=== PATIENT | male | born 1955 | race Caucasian/White ===

== ENCOUNTER 2016-09-05 05:53 | Day surgery (SDC) | payer BC, MEDICAID ==
[2016-09-05] MEDS ORDERED: Dextrose 5%-Lactated Ringers 1,000 ML IV SCH (06:45)
[2016-09-05] MEDS ORDERED: fentaNYL 100 MCG/2 ML SDV ONE (07:16)
[2016-09-05] MEDS ORDERED: Propofol 200 MG/20 ML SDV ONE (07:16)
[2016-09-05] MEDS ORDERED: Midazolam 1 MG/ML 2 ML SDV ONE (07:16)
[2016-09-05 09:03] VITALS: BP 129/74
--- NOTE | 2016-09-12 14:35 | OR ---
DATE OF PROCEDURE: 09/05/2016 PREOPERATIVE DIAGNOSIS: History of ongoing diarrhea/frequent loose bowel movements. POSTOPERATIVE DIAGNOSIS: Normal colonoscopic exam. OPERATIVE PROCEDURE: Flexible colonoscopy with, 1. Collection of stool for culture and sensitivity. 2. Random colon and rectal biopsies to rule out microscopic colitis ([id number]). ANESTHESIA: IV sedation. INDICATION FOR PROCEDURE: This is a 61-year-old male presenting with some ongoing frequent loose bowel movements and/or diarrhea. Plan is to proceed with colonoscopy with biopsies and/or polypectomy as indicated. Potential risks including bleeding and perforation were discussed, and the patient wishes to proceed. DETAILS OF PROCEDURE: The patient was taken to the operating room and placed in a left lateral decubitus position. IV sedation was administered, after which the initial digital rectal exam was performed and was unremarkable. No significant prostate enlargement was noted. The scope was then passed into the rectum with retroflexion revealing uncomplicated hemorrhoidal columns. The scope was then easily passed through the level of the cecum. The prep was fairly good with there being a small amount liquid stool present. Grossly, there were no abnormalities. Specifically, there is no areas of inflammation or diverticular disease and no polyps or other signs of neoplasia. As the scope was then withdrawn the negative findings were reconfirmed and multiple random biopsies beginning in the cecum and extending down to the rectum were made to rule out microscopic colitis with the biopsy sites were seen. The stool was also collected for a full battery of stool microbiologic workup and the procedure was then concluded. The patient was taken to the recovery room in satisfactory condition. There were no evident complications. The patient will be set up for followup with Dr. Bains in [facility], 7-10 days. Anson Glover MD /[id number]
== END 2016-09-05 09:00 | disposition home or self-care (01) ==
LOC: JP.SDS 05:53
PROVIDERS: ATTEND Surgery
DX: R19.7 Diarrhea, unspecified (principal); Z91.09 Other allergy status, other than to drugs and biological substances
CPT/HCPCS: 45380; 87046; 87177; 87209; 87493; 87899; 88305; J2250; J2704; J3010; J7042

== ENCOUNTER 2017-07-08 15:56 | Emergency (ER) | payer MEDICAID ==
[2017-07-08] MEDS ORDERED: Albuterol/Ipratropium 3.0-0.5 MG/3 ML Neb Soln NEB ONE (17:21)
[2017-07-08 18:00] VITALS: BP 116/61
--- NOTE | 2017-07-08 18:05 | EDM.PDOC ---
ED HPI GENERAL MEDICAL PROBLEM - General Chief Complaint: Respiratory Problem Stated Complaint: FLU, GETTING WORSE Time Seen by Provider: 07/08/17 16:45 Source of Information: Reports: Patient, Family History Limitations: Reports: No Limitations - History of Present Illness INITIAL COMMENTS - FREE TEXT/NARRATIVE: 62-year-old male was seen Monday in the clinic for a bad cough, started on Tamiflu but no testing was done. He is taking the medicine for 3 days but seems to be getting worse, his cough is uncontrollable and he can't sleep. Running some intermittent low-grade fevers. No productive cough. Generalized body aches , feels awful. He is a smoker. No nausea or vomiting. Onset: Gradual (Over the past 4 days) Severity: Moderate Associated Symptoms: Reports: Cough, Fever/Chills, Malaise, Shortness of Breath - Related Data Allergies Allergy/AdvReac Type Severity Reaction Status Date / Time dust mites Allergy Fever Uncoded 07/08/17 16:41 Home Meds: Home Meds Citalopram Hydrobromide [Celexa] 20 mg PO DAILY 12/10/15 [History] Tadalafil [Cialis] 5 mg PO ASDIRECTED 03/08/16 [History] Past Medical History - Past Health History Medical/Surgical History: Denies Medical/Surgical History HEENT History: Reports: Impaired Vision Other HEENT History: wears glasses Respiratory History: Reports: Bronchitis, Recurrent, Sleep Apnea, Other (See Below) Other Respiratory History: c-pap Gastrointestinal History: Reports: Chronic Diarrhea Genitourinary History: Reports: Other (See Below) Other Genitourinary History: E.D. Musculoskeletal History: Reports: Back Pain, Chronic Psychiatric History: Reports: Anxiety, Depression - Infectious Disease History Infectious Disease History: Reports: Chicken Pox, Measles, Mumps - Past Surgical History HEENT Surgical History: Reports: Adenoidectomy, Tonsillectomy GI Surgical History: Reports: Colonoscopy, EGD, Hernia, Inguinal Social & Family History - Family History Family Medical History: Noncontributory - Tobacco Use Smoking Status *Q: Current Every Day Smoker Years of Tobacco use: 40 Packs/Tins Daily: 1 Used Tobacco, but Quit: No Second Hand Smoke Exposure: No - Caffeine Use Caffeine Use: Reports: Coffee - Alcohol Use Days Per Week of Alcohol Use: 7 Number of Drinks Per Day: 2 Total Drinks Per Week: 14 - Recreational Drug Use Recreational Drug Use: No ED ROS GENERAL - Review of Systems Review Of Systems: See Below Constitutional: Reports: Chills, Malaise HEENT: Denies: Throat Pain Respiratory: Reports: Shortness of Breath, Cough. Denies: Sputum Cardiovascular: Denies: Chest Pain GI/Abdominal: Denies: Abdominal Pain, Nausea, Vomiting Skin: Reports: No Symptoms Neurological: Denies: Dizziness, Headache Psychiatric: Reports: No Symptoms ED EXAM, GENERAL - Physical Exam Exam: See Below Exam Limited By: No Limitations General Appearance: Alert, No Apparent Distress Throat/Mouth: Normal Inspection Respiratory/Chest: No Respiratory Distress, Rhonchi, Wheezing Cardiovascular: Regular Rate, Rhythm Neurological: Alert, Oriented Psychiatric: Normal Affect, Normal Mood Skin Exam: Warm, Dry Course - Vital Signs Last Recorded V/S: Last Vital Signs Temp 98.6 F 07/08/17 17:58 Pulse 53 L 07/08/17 17:58 Resp 16 07/08/17 17:58 BP 116/61 07/08/17 17:58 Pulse Ox 95 07/08/17 17:58 - Orders/Labs/Meds Orders: Active Orders 24 hr Category Date Time Status RT Aerosol Therapy [RC] ASDIRECTED Care 07/08/17 17:21 Active Chest 2V [CR] Stat Exams 07/08/17 17:21 Taken Meds: Medications Discontinued Medications Generic Name Dose Route Start Last Admin Trade Name Freq PRN Reason Stop Dose Admin Albuterol/Ipratropium 3 ml 07/08/17 17:21 07/08/17 17:27 Duoneb 3.0-0.5 Mg/3 Ml NEB 07/08/17 17:22 3 ml ONETIME ONE Administration - Re-Assessments/Exams Free Text/Narrative Re-Assessment/Exam: 07/08/17 18:13 Influenza antigens are negative. DuoNeb was given and markedly improved his symptoms subjectively. A two-view chest x-ray showed no infiltrates. Patient was started on 50 mg of prednisone daily for the next 5-6 days, a course of Zithromax, told to stop the Tamiflu and also given some Robitussin with codeine and an albuterol inhaler. Departure - Departure Time of Disposition: 18:42 Disposition: Home, Self-Care 01 Condition: Fair Clinical Impression: Bronchitis - Discharge Information Instructions: Acute Bronchitis, [id number] Referrals: Facundo Bains MD [Primary Care Provider] - Forms: ED Department Discharge Care Plan Goals: Take 5 pills of prednisone daily with food for up to 6 days. Use cough medication for cough as needed, take antibiotic as prescribed and the inhaler may help breathing with 1-2 puffs every 3-4 hours. Increase activity as tolerated and return anytime if you feel you are worsening despite treatment. - My Orders Last 24 Hours: My Active Orders 07/08/17 17:21 RT Aerosol Therapy [RC] ASDIRECTED Chest 2V [CR] Stat - Assessment/Plan Last 24 Hours: My Active Orders 07/08/17 17:21 RT Aerosol Therapy [RC] ASDIRECTED Chest 2V [CR] Stat
--- NOTE | 2017-07-11 09:05 | CR ---
Chest 2V INDICATION: cough COMPARISON: 07/10/2013 FINDINGS: Two views. Focal infiltrate left lung base. Possible infiltrate right midlung. No pleura l effusions. Heart size normal. IMPRESSION: Infiltrate left lung base and possibly right midlung.
== END 2017-07-08 18:42 | disposition home or self-care (01) ==
LOC: JP.ED 15:56
DX: J40 Bronchitis, not specified as acute or chronic (principal); F17.210 Nicotine dependence, cigarettes, uncomplicated; Z91.09 Other allergy status, other than to drugs and biological substances
CPT/HCPCS: 71020; 87804; 99284; J7620; 94640

== ENCOUNTER 2022-10-24 09:39 | Emergency (ER) | payer MEDICARE ==
[2022-10-24 11:15] LABS: ESTIMATED GFR 75 mL/min (>60)
[2022-10-24 12:30] VITALS: BP 119/82; PULSE 61
== END 2022-10-24 12:25 | disposition home or self-care (01) ==
LOC: JP.ED 09:39
DX: M54.42 Lumbago with sciatica, left side (principal); M54.16 Radiculopathy, lumbar region; I73.9 Peripheral vascular disease, unspecified; Z79.82 Long term (current) use of aspirin; Z79.02 Long term (current) use of antithrombotics/antiplatelets; Z72.0 Tobacco use; Z95.5 Presence of coronary angioplasty implant and graft
CPT/HCPCS: 36415; 80053; 83605; 85025; 85379; 86140; 93926-26; 93926-LT; 99283; 99284

== ENCOUNTER 2024-01-17 10:15 | Emergency (ER) | payer MEDICARE ==
[2024-01-17 10:42] VITALS: BP 122/74; PULSE 63
[2024-01-17 11:26] LABS: BASOPHILS ABSOLUTE AUTO 0.06 K/uL (0.00-0.10); BASOPHILS PERCENT AUTO 0.8 % (0.1-1.3); EOSINOPHILS PERCENT AUTO 2.8 % (0.0-5.4); HEMOGLOBIN 13.2 g/dL (12.9-16.9); IMMATURE GRAN PERCENT AUTO 0.3 % (0.0-0.7); LYMPHOCYTES PERCENT AUTO 31.7 % (11.4-47.7); MEAN CORPUSCULAR HEMOGLOBIN 30.1 pg (31.6-35.5); MEAN CORPUSCULAR HGB CONC 33.8 g/dL (31.6-35.5); MONOCYTES ABSOLUTE AUTO 0.49 K/uL (0.20-0.90); MONOCYTES PERCENT AUTO 6.8 % (3.3-12.6); NEUTROPHILS ABSOLUTE AUTO 4.18 K/uL (1.0-7.6); NEUTROPHILS PERCENT AUTO 57.6 % (40.0-78.1); PLATELET COUNT,PLT 288 K/uL (130-375); RED BLOOD CELL COUNT 4.38 M/uL (4.14-5.76); WHITE BLOOD CELL COUNT,WBC 7.3 K/uL (3.2-11.0)
[2024-01-17 11:44] LABS: IMMATURE GRAN ABSOLUTE AUTO 0.02 K/uL (0.00-0.23)
[2024-01-17] MEDS: Sodium Chloride 0.9% 80 ML IV SCH (11:46)
[2024-01-17] MEDS: Iopamidol 612 MG/ML 100 ML Bottle IV PRN (11:46)
[2024-01-17] MEDS: Sodium Chloride 0.9% 10 ML Syringe FLUSH ONE (11:46)
[2024-01-17 12:28] LABS: CORONAVIRUS COVID-19 NAA NEGATIVE (NEGATIVE); INFLUENZA A NAA NEGATIVE (NEGATIVE); INFLUENZA B NAA NEGATIVE (NEGATIVE); RESPIRATORY SYNCYTIAL VIR NAA NEGATIVE (NEGATIVE)
[2024-01-17 12:29] LABS: APPEARANCE,URINE CLEAR (CLEAR); BILIRUBIN,URINE NEGATIVE (NEGATIVE); COLOR,URINE YELLOW (YELLOW); GLUCOSE,URINE NEGATIVE (NEGATIVE); KETONES,URINE NEGATIVE (NEGATIVE); LEUKOCYTE ESTERASE,URINE NEGATIVE (NEGATIVE); NITRITE,URINE NEGATIVE (NEGATIVE); OCCULT BLOOD,URINE NEGATIVE (NEGATIVE); PROTEIN,URINE NEGATIVE (NEGATIVE); UROBILINOGEN,URINE 0.2 EU/dL (0.2-1.0)
[2024-01-17 12:42] LABS: AMORPHOUS SEDIMENT,URINE NOT SEEN; BACTERIA,URINE NOT SEEN; EPITHELIAL CELLS,URINE NOT SEEN; MUCUS,URINE NOT SEEN; RBC,URINE 0-5 (0-5); WBC,URINE 0-5 (0-5)
== END 2024-01-17 13:24 | disposition home or self-care (01) ==
LOC: JP.ED 10:15
DX: K59.01 Slow transit constipation (principal); Z79.52 Long term (current) use of systemic steroids; Z79.899 Other long term (current) drug therapy; Z79.2 Long term (current) use of antibiotics; Z91.048 Other nonmedicinal substance allergy status
CPT/HCPCS: 0241U; 36415; 74178; 74178-26; 80053; 80307; 81001; 82272; 83605; 83690; 84145; 85025; 99284; J3490; Q9967

== ENCOUNTER 2024-02-19 06:07 | Day surgery (SDC) | payer MEDICARE ==
[2024-02-19] MEDS: Lactated Ringers 1,000 ML IV SCH (06:45)
[2024-02-19 06:47] LABS: BASOPHILS ABSOLUTE AUTO 0.04 K/uL (0.00-0.10); BASOPHILS PERCENT AUTO 0.6 % (0.1-1.3); EOSINOPHILS ABSOLUTE AUTO 0.16 K/uL (0.00-0.40); EOSINOPHILS PERCENT AUTO 2.4 % (0.0-5.4); HEMATOCRIT 39.7 % (38.4-49.7); HEMOGLOBIN 13.4 g/dL (12.9-16.9); IMMATURE GRAN PERCENT AUTO 0.3 % (0.0-0.7); LYMPHOCYTES ABSOLUTE AUTO 2.18 K/uL (0.8-3.3); LYMPHOCYTES PERCENT AUTO 33.1 % (11.4-47.7); MEAN CORPUSCULAR HEMOGLOBIN 30.4 pg (31.6-35.5); MEAN CORPUSCULAR HGB CONC 33.8 g/dL (31.6-35.5); MONOCYTES ABSOLUTE AUTO 0.53 K/uL (0.20-0.90); MONOCYTES PERCENT AUTO 8.1 % (3.3-12.6); NEUTROPHILS ABSOLUTE AUTO 3.65 K/uL (1.0-7.6); NEUTROPHILS PERCENT AUTO 55.5 % (40.0-78.1); PLATELET COUNT,PLT 199 K/uL (130-375); RED BLOOD CELL COUNT 4.41 M/uL (4.14-5.76); WHITE BLOOD CELL COUNT,WBC 6.6 K/uL (3.2-11.0)
[2024-02-19 06:50] LABS: IMMATURE GRAN ABSOLUTE AUTO 0.02 K/uL (0.00-0.23)
[2024-02-19] MEDS ORDERED: Propofol 200 MG/20 ML SDV ONE ×2 (07:04→09:00)
[2024-02-19] MEDS ORDERED: fentaNYL 100 MCG/2 ML SDV ONE (07:04)
[2024-02-19] MEDS ORDERED: Midazolam 1 MG/ML 2 ML SDV ONE ×2 (07:04→08:04)
[2024-02-19] MEDS: Nozin Nasal Sanitizer NASBOTH SCH ×2 (07:07→20:12)
[2024-02-19 07:09] LABS: A/G RATIO 1.2 (1.2-2.2); ALANINE AMINOTRANSFERASE,ALT 27 U/L (12-78); ALBUMIN 3.7 g/dL (3.4-5.0); ALKALINE PHOSPHATASE 62 U/L (46-116); ANION GAP 11.2 mmol/L (5.0-14.0); ASPARTATE AMNIOTRANSFERASE,AST 17 U/L (15-37); BILIRUBIN TOTAL 0.5 mg/dL (0.2-1.0); BLOOD UREA NITROGEN,BUN 12 mg/dL (7-18); CALCIUM 8.4 mg/dL (8.5-10.1); CARBON DIOXIDE,CO2 24 mmol/L (21-32); CHLORIDE,CL 106 mmol/L (100-108); CREATININE 1.1 mg/dL (0.8-1.3); EST CRCL DRUG DOSING (CG) 69.82 mL/min; ESTIMATED GFR 74 mL/min (>60); GLUCOSE RANDOM 102 mg/dL (74-106); POTASSIUM,K 4.2 mmol/L (3.6-5.2); PROTEIN TOTAL,TP 6.9 g/dL (6.4-8.2); SODIUM,NA 141 mmol/L (140-148)
[2024-02-19] MEDS ORDERED: ceFAZolin 2 GM in Sodium Chloride 0.9% 50 ML IV ONE (07:45)
[2024-02-19] MEDS: ceFAZolin 2 GM in Premix Bag 1 BAG IV ONE (08:32)
[2024-02-19] MEDS: Bupivacaine 0.5% 50 ML MDV ONE (08:40)
[2024-02-19] MEDS ORDERED: Magnesium Hydroxide 400 MG/5 ML Susp 30 ML Cup PO PRN (09:37)
[2024-02-19] MEDS ORDERED: Ondansetron 4 MG/2 ML SDV IVPUSH PRN (09:37)
[2024-02-19] MEDS ORDERED: Docusate Sodium 100 MG Cap PO PRN (09:37)
[2024-02-19] MEDS ORDERED: Morphine 2 MG/ML SYRINGE IVPUSH PRN (09:37)
[2024-02-19] MEDS: oxyCODONE 5 MG Tab PO PRN (13:23)
[2024-02-19] MEDS: Pregabalin 75 MG Cap PO SCH (13:24)
[2024-02-19] MEDS: Nicotine Polacrilex 2 MG Gum CHEW PRN (13:24)
[2024-02-19] MEDS: Acetaminophen 325 MG Tab PO SCH (13:24)
[2024-02-19] MEDS: Sodium Chloride 0.9% 1,000 ML IV SCH (15:17)
[2024-02-19] MEDS: ceFAZolin 2 GM in Premix Bag 1 BAG IV SCH (15:20)
[2024-02-19] MEDS: Ketorolac 30 MG/ML SDV IVPUSH PRN (15:37)
[2024-02-20] MEDS: Psyllium Husk Powder Sugar Free 5.85 GM Packet PO SCH (08:23)
[2024-02-20] MEDS: atorvaSTATin 20 MG Tab PO SCH (08:23)
[2024-02-20] MEDS: Aspirin 325 MG Tab.EC PO SCH (08:23)
[2024-02-20 10:03] VITALS: BP 101/67; PULSE 71
[2024-02-20] MEDS: oxyCODONE 5 MG Tab PO PRN (10:12)
== END 2024-02-20 10:20 | disposition home or self-care (01) ==
LOC: JP.SDS 06:07 → JP.2SS 09:37 → JP.SDS 02-20 10:20
PROVIDERS: ATTEND Specialist
DX: M17.12 Unilateral primary osteoarthritis, left knee (principal); I10 Essential (primary) hypertension; I25.10 Atherosclerotic heart disease of native coronary artery without angina pectoris; F17.200 Nicotine dependence, unspecified, uncomplicated; G47.33 Obstructive sleep apnea (adult) (pediatric)
CPT/HCPCS: 01400; 27447; 36415; 73560; 80053; 85025; 97110; 97116; 97161; 97530; A9270; C1713; C1776; J0665; J0690; J1885; J2250; J2704; J3010; J7030; J7120

== ENCOUNTER 2024-06-03 06:34 | Day surgery (SDC) | payer MEDICARE ==
[2024-06-03] MEDS ORDERED: Bupivacaine 0.5%/EPINEPHrine 1:200,000 50 ML MDV ONE (07:00)
[2024-06-03 07:01] LABS: HEMATOCRIT 41.4 % (38.4-49.7); HEMOGLOBIN 13.8 g/dL (12.9-16.9); MEAN CORPUSCULAR HEMOGLOBIN 30.9 pg (31.6-35.5); MEAN CORPUSCULAR HGB CONC 33.3 g/dL (31.6-35.5); MEAN CORPUSCULAR VOLUME 92.6 fL (81.4-99.0); RED BLOOD CELL COUNT 4.47 M/uL (4.14-5.76); WHITE BLOOD CELL COUNT,WBC 7.4 K/uL (3.2-11.0)
[2024-06-03 07:21] LABS: A/G RATIO 1.1 (1.2-2.2); ALANINE AMINOTRANSFERASE,ALT 31 U/L (12-78); ALBUMIN 3.7 g/dL (3.4-5.0); ALKALINE PHOSPHATASE 67 U/L (46-116); ASPARTATE AMNIOTRANSFERASE,AST 17 U/L (15-37); BILIRUBIN TOTAL 0.7 mg/dL (0.2-1.0); BLOOD UREA NITROGEN,BUN 14 mg/dL (7-18); CALCIUM 9.2 mg/dL (8.5-10.1); CARBON DIOXIDE,CO2 27 mmol/L (21-32); CHLORIDE,CL 103 mmol/L (100-108); CREATININE 1.1 mg/dL (0.8-1.3); EST CRCL DRUG DOSING (CG) 69.41 mL/min; ESTIMATED GFR 74 mL/min (>60); GLUCOSE RANDOM 101 mg/dL (74-106); PROTEIN TOTAL,TP 7.2 g/dL (6.4-8.2); SODIUM,NA 139 mmol/L (140-148)
[2024-06-03] MEDS ORDERED: Succinylcholine 200 MG/10 ML MDV ONE (07:23)
[2024-06-03] MEDS ORDERED: Glycopyrrolate 0.2 MG/ML 5 ML MDV ONE (07:23)
[2024-06-03] MEDS ORDERED: Dexamethasone 4 MG/ML SDV ONE (07:23)
[2024-06-03] MEDS ORDERED: fentaNYL 250 MCG/5 ML SDV ONE (07:23)
[2024-06-03] MEDS ORDERED: Rocuronium 50 MG/5 ML Vial ONE (07:23)
[2024-06-03] MEDS ORDERED: Ondansetron 4 MG/2 ML SDV ONE (07:23)
[2024-06-03] MEDS ORDERED: Propofol 200 MG/20 ML SDV ONE (07:23)
[2024-06-03] MEDS ORDERED: Neostigmine Methylsulfate 10 MG/10 ML MDV ONE (07:23)
[2024-06-03] MEDS: Lactated Ringers 1,000 ML IV SCH (07:24)
[2024-06-03] MEDS: metroNIDAZOLE/Normal Saline 500 MG in Premix Bag 1 BAG IV ONE (07:25)
[2024-06-03] MEDS: ceFAZolin 2 GM in Premix Bag 1 BAG IV ONE (07:46)
[2024-06-03] MEDS: Bupivacaine 0.5%/EPINEPHrine 1:200,000 50 ML MDV INJECT ONE ×2 (08:19)
[2024-06-03] MEDS ORDERED: Lactated Ringers 1,000 ML ONE (08:59)
[2024-06-03] MEDS ORDERED: fentaNYL 100 MCG/2 ML SDV ONE ×2 (08:59→09:07)
[2024-06-03] MEDS: Acetaminophen/HYDROcodone 325-5 MG Tab PO PRN (10:48)
[2024-06-03 12:07] VITALS: BP 142/75; PULSE 56
== END 2024-06-03 12:39 | disposition home or self-care (01) ==
LOC: JP.SDS 06:34
PROVIDERS: ATTEND Surgery
DX: K40.30 Unilateral inguinal hernia, with obstruction, without gangrene, not specified as recurrent (principal); E78.5 Hyperlipidemia, unspecified; I73.9 Peripheral vascular disease, unspecified; F17.200 Nicotine dependence, unspecified, uncomplicated; F41.9 Anxiety disorder, unspecified
CPT/HCPCS: 36415; 49650; 80053; 85027; A9270; C1781; J0171; J0330; J0690; J1100; J1596; J1836; J2405; J2704; J2710; J2795; J3010; J3490; J7120